=== PATIENT | male | born 1935 | race Caucasian/White ===

== ENCOUNTER 2022-01-06 19:19 | Emergency (ER) | payer MEDICARE, OTHER ==
--- NOTE | 2022-01-06 20:15 | NUR ---
patient to triage no answer
--- NOTE | 2022-01-06 20:47 | NUR ---
pt not in waiting room
[2022-01-07] MEDS ORDERED: ERGO500093 PO (14:21)
[2022-01-07] MEDS ORDERED: OLME5TAB6 PO (14:21)
[2022-01-07] MEDS ORDERED: FINA5TAB11 PO (14:21)
[2022-01-07] MEDS ORDERED: ATOR10TA PO (14:22)
== END 2022-01-06 20:47 | disposition left against medical advice (07) ==
LOC: ER 19:23
DX: Z53.21 Procedure and treatment not carried out due to patient leaving prior to being seen by health care provider (principal)

== ENCOUNTER 2022-01-07 13:19 | Inpatient (IN) | payer MEDICARE, OTHER ==
[~2022-01-07] VITALS: Ht 172.7 cm; Wt 58.1 kg
--- NOTE | 2022-01-07 13:23 | NUR ---
TO ER BED 4, [id number] FRM HOME, HEADACHE & DIZZINESS SINCE MORNING. WAS HERE YESTERDAY FELL, LAC AT BACK OF HEAD, LEFT W/O BEING SEEN, AAOX3, BREATHING EVEN AND NON LABORED, CONNECTED TO MONITOR
[2022-01-07 13:59] LABS: BASOPHILS % (AUTO) 0.3 % (0.0-2.0); EOSINOPHILS % (AUTO) 0.6 % (0.0-6.0); HEMATOCRIT 39 % (39-51); HEMOGLOBIN 12.6 g/dL (13.5-17.5); LYMPHOCYTES # (AUTO) 1.1 K/uL (0.8-4.8); LYMPHOCYTES % (AUTO) 16.9 % (20.0-44.0); MEAN CORPUSCULAR HGB CONC 33 g/dl (31.0-36.0); MEAN CORPUSCULAR VOLUME 90 fL (80-96); MONOCYTES # (AUTO) 0.6 K/uL (0.1-1.30); MONOCYTES % (AUTO) 8.4 % (2.0-12.0); NEUTROPHILS # (AUTO) 4.8 K/uL (1.8-8.9); NEUTROPHILS % (AUTO) 73.8 % (43.0-81.0); PLATELET COUNT (AUTO) 239 K/uL (150-450); RED BLOOD CELL COUNT(AUTO) 4.29 MIL/uL (4.5-6.0); WHITE BLOOD COUNT (AUTO) 6.5 K/uL (4.3-11.0)
[2022-01-07 14:06] LABS: CALCIUM, SERUM 9.3 mg/dL (8.5-10.1); CARBON DIOXIDE 32 mmol/L (21-32); CHLORIDE 101 mmol/L (98-107); CREATININE 1.2 mg/dL (0.6-1.3); GLUCOSE 99 mg/dL (74-106); POTASSIUM 4.3 mmol/L (3.5-5.1); SODIUM SERUM 134 mmol/L (136-145); UREA NITROGEN, BLOOD 24 mg/dL (7-18)
[2022-01-07 14:12] LABS: ALANINE AMINOTRANSFERASE 18 U/L (12-78); ALBUMIN 3.6 g/dL (3.4-5.0); ALKALINE PHOSPHATASE 102 U/L (46-116); ASPARTATE AMINOTRANSFERASE 24 U/L (15-37); BILIRUBIN,DIRECT 0.2 mg/dL (0.0-0.2); BILIRUBIN,TOTAL 0.7 mg/dL (0.2-1.0); TOTAL PROTEIN, SERUM 7.6 g/dL (6.4-8.2)
[2022-01-07] MEDS ORDERED: FINA5TAB11 PO (14:21)
[2022-01-07] MEDS ORDERED: ERGO500093 PO (14:21)
[2022-01-07] MEDS ORDERED: OLME5TAB6 PO (14:21)
[2022-01-07] MEDS ORDERED: ATOR10TA PO (14:22)
--- NOTE | 2022-01-07 14:22 | NUR ---
COVID SWAB DONE AND SENT TO LAB
--- NOTE | 2022-01-07 14:26 | NUR ---
PT TAKEN TO RADIOLOGY
[2022-01-07] MEDS ORDERED: IOHEXOL-350 100 ML VIAL IV ONE (15:51)
[2022-01-07] MEDS ORDERED: IV NS 0.9% 250 ML IV ONE (15:51)
--- NOTE | 2022-01-07 17:04 | NUR ---
TABITHA ([facility]) [phone]
--- NOTE | 2022-01-07 17:05 | NUR ---
BP 191/97, DR HENDRICKSON AWARE
--- NOTE | 2022-01-07 17:29 | NUR ---
Elizabeth aaron in [facility] - 01/07/22 at 1731 by ROBSON REPORT GIVEN TO BALA DENNIS
--- NOTE | 2022-01-07 17:39 | NUR ---
BP 192/100, DR HENDRICKSON AWARE
[2022-01-07] MEDS ORDERED: hydrALAZINE HCL IV 20 MG VIAL ONE (18:09)
[2022-01-07] MEDS: hydrALAZINE HCL IV 20 MG VIAL IV PRN (18:12)
--- NOTE | 2022-01-07 20:02 | NUR ---
RECEIVED PT IN ER ROOM 4. PT IS RESTING COMFORTABLY IN BED. PT IS ALERT. RR EVEN AND NON LABORED. CONNECTED TO POX AND HEART MONITOR. VITAL SIGNS WITHIN LIMITS. FAMILY AT BEDSIDE. WILL CONTINUE TO MONITOR
[2022-01-07] MEDS ORDERED: Z GUARD REMEDY 4 OZ OINT TP PRN (23:00)
[2022-01-07] MEDS ORDERED: ERGOCALCIFEROL (VITAMIN D 2) 50,000 UNIT CAPSULE PO SCH (23:00)
[2022-01-07] MEDS ORDERED: ONDANSETRON HCL/PF 4 MG/2 ML VIAL IVP PRN (23:00)
--- NOTE | 2022-01-07 23:32 | NUR ---
DR HENDRICKSON AT BEDSIDE
[2022-01-08] VITALS (23 sets, daily range): BP systolic 119–195; BP diastolic 54–102
--- NOTE | 2022-01-08 00:10 | NUR ---
PT RESTING IN BED WITH EYES CLOSED. RR EVEN AND NON LABORED. CONNECTED TO POX AND HEART MONITOR. VSS. WILL CONTINUE TO MONITOR
[2022-01-08 00:40] LABS: THYROID STIMULATING HORMONE 2.695 uIU/mL (0.358-3.74)
[2022-01-08 06:12] LABS: BASOPHILS % (AUTO) 0.4 % (0.0-2.0); EOSINOPHILS % (AUTO) 0.2 % (0.0-6.0); HEMATOCRIT 39 % (39-51); LYMPHOCYTES # (AUTO) 1.1 K/uL (0.8-4.8); LYMPHOCYTES % (AUTO) 15.1 % (20.0-44.0); MEAN CORPUSCULAR HGB CONC 34 g/dl (31.0-36.0); MEAN CORPUSCULAR VOLUME 89 fL (80-96); MONOCYTES # (AUTO) 0.6 K/uL (0.1-1.30); MONOCYTES % (AUTO) 7.6 % (2.0-12.0); NEUTROPHILS # (AUTO) 5.6 K/uL (1.8-8.9); NEUTROPHILS % (AUTO) 76.7 % (43.0-81.0); PLATELET COUNT (AUTO) 234 K/uL (150-450); RED BLOOD CELL COUNT(AUTO) 4.33 MIL/uL (4.5-6.0); WHITE BLOOD COUNT (AUTO) 7.3 K/uL (4.3-11.0)
[2022-01-08 06:30] LABS: CALCIUM, SERUM 9.5 mg/dL (8.5-10.1); CREATININE 1.1 mg/dL (0.6-1.3); MAGNESIUM 2.5 mg/dL (1.8-2.4); PHOSPHORUS 3.7 mg/dL (2.5-4.9); POTASSIUM 3.7 mmol/L (3.5-5.1)
--- NOTE | 2022-01-08 08:43 | NUR ---
REPORT GIVEN TO SARBJIT FOR SONNY
--- NOTE | 2022-01-08 09:06 | NUR ---
PT TRANSFERRED TO [facility] ACLS PROTOCOL. WARM HANDOFF GIVEN TO SARBJIT BLUEPRINT ASSEMBLER.
--- NOTE | 2022-01-08 09:20 | NUR ---
ICU/RN PT ADMITTED FROM ER.FROM HOME.POST FALL HAS ICH.PT IS AWAKE,ALERT-4.AFEBRILE.SINUS RHYTHM ON MONITOR.LEFT UPPER ARM -HL.DIAPER ON. SKIN INTACT.WAITING FOR SECOND CT HEAD RESULT .FAMILY AT BED SIDE.
[2022-01-08] MEDS: VALSARTAN 80 MG TABLET PO SCH (09:32)
[2022-01-08] MEDS: ACETAMINOPHEN 325 MG TABLET PO PRN (09:34)
--- NOTE | 2022-01-08 10:00 | NUR ---
ICU/RN PT C/O OF HEADACHE.BP 190/106.TYLENOL PO GIVEN AND DIOVAN PO GIVEN ORDERED.CONTINUE MONITORING.
--- NOTE | 2022-01-08 11:04 | NUR ---
ICU/RN RIGHT UPPER ARM MID LINE INSERTED
--- NOTE | 2022-01-08 11:40 | NUR ---
ICU/RN CT OF THE HEAD RESULT SEND TO W[facility] HENDRICKSON.
[2022-01-08] MEDS ORDERED: LACTULOSE 10 G/15 ML UDC (PYXIS) PO PRN (16:00)
[2022-01-08] MEDS: FINASTERIDE (5 MG) 5 MG TABLET PO SCH (17:13)
--- NOTE | 2022-01-08 18:33 | NUR ---
ICU/RN PT IS RESTING.ON ROOM AIR,SAT O2-98%.V/S STABLE,AFEBRILE NO PAIN REPORTED AT THIS TIME.ALL MEDS ARE GIVEN ORDERED.AWAKE,ALERT-4. FAMILY AT BEDSIDE.CONTINUE MONITORING.
--- NOTE | 2022-01-08 19:35 | NUR ---
CONFORMAL PAD FORMER OPENING NOTES: RECEIVED PT IN BED, AWAKE, ALERT/ORIENTED X4 AND VERBALLY RESPONSIVE. ON ROOM AIR AND PT TOLERATED WELL. O2 SAT 96%. IV ACCESS ON LAC#20G AND ADILSON MIDLINE INTACT AND PATENT. NO S/S OF INFILTRATIONS. NO C/O PAIN OR DISCOMFORT. NO ACUTE DISTRESS. INCONTINENT IN BOWEL AND BLADDER AT THIS MOMENT. ABLE TO MAKE HIS NEEDS. ALL SAFETY MEASURES IN PLACE. SIDE RAILS UP X2, BED IN LOWEST POSITION AND LOCKED. PLACE CALL LIGHT WITH IN REACH. WILL CONTINUE TO MONITOR
[2022-01-08] MEDS ORDERED: NIMODIPINE (30MG) 30 MG CAPSULE PO SCH (21:00)
[2022-01-08] MEDS: ATORVASTATIN 10 MG TABLET PO SCH (22:27)
[2022-01-09] VITALS (25 sets, daily range): BP systolic 113–161; BP diastolic 54–91
[2022-01-09] MEDS: hydrALAZINE HCL IV 20 MG VIAL IV PRN (04:36)
--- NOTE | 2022-01-09 04:42 | NUR ---
RN NOTES: PT'S BP INCREASED TO 161/87, PULSE- 84. HYDRALAZINE 0.5 ML GIVEN PER PRN ORDERED. WILL CONTINUE TO MONITOR
--- NOTE | 2022-01-09 06:25 | NUR ---
SILL WORKER CLOSING NOTES: PT IN BED, AWAKE, ALERT/ORIENTED X4 AND VERBALLY RESPONSIVE. ON ROOM AIR AND PT TOLERATED WELL. O2 SAT 97%. IV ACCESS ON LAC#20G AND ADILSON MIDLINE INTACT AND PATENT. NO S/S OF INFILTRATIONS. NO C/O PAIN OR DISCOMFORT. NO ACUTE DISTRESS. INCONTINENT IN BOWEL AND BLADDER AT THIS MOMENT. ABLE TO MAKE HIS NEEDS. ALL DUE MEDS GIVEN ORDERED. ALL SAFETY MEASURES IN PLACE. SIDE RAILS UP X2, BED IN LOWEST POSITION AND LOCKED. PLACE CALL LIGHT WITH IN REACH. WILL ENDORSE TO MORNING SHIFT NURSE.
--- NOTE | 2022-01-09 07:30 | NUR ---
OPENING NOTE: REPORT RECEIVED FROM MYRON CUMMINGS. ORDERS AND LABS REVIEWED DURING REPORT. PER REPORT PT IS ALERT OX4, FOLLOWS COMMANDS. PT IS ON BEDREST FOR SAH AND RISK FOR FALL. PER REPORT PT IS NOT A SURGICAL CANDIDATE. PT CHECKED ON HOURLY AND PRN BY NURSING STAFF.
[2022-01-09] MEDS: VALSARTAN 80 MG TABLET PO SCH (09:00)
[2022-01-09] MEDS: FINASTERIDE (5 MG) 5 MG TABLET PO SCH (18:29)
--- NOTE | 2022-01-09 18:44 | NUR ---
END OF SHIFT NOTE: PT HAD A FAIRLY UNEVENTFUL SHIFT. PT CONTINUES TO BE ALERT OX4 ALL DAY. POOR APPETITE. PATIENT C/O TOLERABLE PAIN IN NECK, DENIES NEED FOR PAIN MEDICATION TODAY. PT CHECKED ON HOURLY AND PRN BY NURSING STAFF.
[2022-01-09] MEDS: ATORVASTATIN 10 MG TABLET PO SCH (22:09)
[2022-01-10] VITALS (20 sets, daily range): BP systolic 89–156; BP diastolic 46–82
[2022-01-10 04:12] LABS: BASOPHILS % (AUTO) 0.2 % (0.0-2.0); EOSINOPHILS % (AUTO) 0.7 % (0.0-6.0); HEMATOCRIT 36 % (39-51); HEMOGLOBIN 12.2 g/dL (13.5-17.5); LYMPHOCYTES # (AUTO) 0.7 K/uL (0.8-4.8); LYMPHOCYTES % (AUTO) 10.4 % (20.0-44.0); MEAN CORPUSCULAR HGB CONC 34 g/dl (31.0-36.0); MEAN CORPUSCULAR VOLUME 88 fL (80-96); MONOCYTES # (AUTO) 0.6 K/uL (0.1-1.30); MONOCYTES % (AUTO) 8.9 % (2.0-12.0); NEUTROPHILS # (AUTO) 5.1 K/uL (1.8-8.9); NEUTROPHILS % (AUTO) 79.8 % (43.0-81.0); PLATELET COUNT (AUTO) 225 K/uL (150-450); RED BLOOD CELL COUNT(AUTO) 4.13 MIL/uL (4.5-6.0); WHITE BLOOD COUNT (AUTO) 6.4 K/uL (4.3-11.0)
[2022-01-10 04:52] LABS: ALBUMIN 2.9 g/dL (3.4-5.0); BILIRUBIN,TOTAL 0.8 mg/dL (0.2-1.0); CALCIUM, SERUM 8.8 mg/dL (8.5-10.1); CREATININE 1.1 mg/dL (0.6-1.3); POTASSIUM 4.2 mmol/L (3.5-5.1); TOTAL PROTEIN, SERUM 6.7 g/dL (6.4-8.2)
--- NOTE | 2022-01-10 07:05 | NUR ---
SHOVEL LOADER OPERATOR Bedside report taken from [facility] nurse Venkat CUMMINGS. pt asleep, easily arousable. AAO x3 , PERRLA, follows commands moves bue and ble 4/5 . pt on room air, tolerating well spo2 98%. pt NSR on the monitor, bue and ble pulses present and palpable. pt on soft diet, bowel sounds present, abdomen soft to touch. pt has condom cath, intact and draining chinedu color urine. all lines traced. vitals stable. safety measures in place. will continue to monitor.
--- NOTE | 2022-01-10 07:50 | NUR ---
CHIEF PROJECTIONIST SCD machine requested from central supply, awaiting delivery to ICU
[2022-01-10] MEDS: VALSARTAN 80 MG TABLET PO SCH ×2 (08:00→08:11)
[2022-01-10] MEDS: hydrALAZINE HCL IV 20 MG VIAL IV PRN (08:50)
--- NOTE | 2022-01-10 08:54 | NUR ---
MACHINE PAN GREASER Pt sitting up in bed feeding self breakfast tray. pt refused breakfast at this time but did drink some tea. prn hydraulizine given for bp. other vitals stable. safety measures in place. will continue to monitor.
[2022-01-10] MEDS: ACETAMINOPHEN 325 MG TABLET PO PRN (09:31)
--- NOTE | 2022-01-10 09:33 | NUR ---
COMMUNICATIONS ATTENDANT PRN tylenol given for neck pain per pt request.
--- NOTE | 2022-01-10 10:15 | NUR ---
MOBILE GAME ENGINEER SCD placed on pt ble
--- NOTE | 2022-01-10 14:18 | NUR ---
C PROGRAMMER PT at bedside working with pt. pt awake, alert and cooperative, vitals stable. pt tolerating well. no signs of acute distress at this time. will continue to monitor.
--- NOTE | 2022-01-10 16:20 | NUR ---
GROCERY SACKER Pt linen change done. skin check done, no new wounds noted. pt tolerated well. vitals stable. will continue to monitor.
--- NOTE | 2022-01-10 17:44 | NUR ---
FOOD COUNTER ATTENDANT telephone report given to [facility] nurse Abhi RN, pt transfered to [facility] room 101 via bed with alarm security or surveillance monitor. all lines traced. vitals stable. pt awake, alert and talking, pt tolerated well. safety measures in place. pt reoriented to new room. Abhi RN at bedside. pt belongings cell phone , trainmaster and eye glasses endorsed to [facility] RN, clothing at bedside also.
[2022-01-10] MEDS: FINASTERIDE (5 MG) 5 MG TABLET PO SCH (18:36)
--- NOTE | 2022-01-10 18:50 | NUR ---
RN NOTE RECEIVED PT FROM ICU. GOT REPORT FROM EMILIANO PHELPS. PT NOT IN DISTRESS. IN ROOM AIR. V/S STABLE. ON TELE MONITOR SHOWING SR. WITH IV ACCES ON ADILSON MIDLINE IN PLACE AND PATENT. V/S STABLE. NO CHANGES IN LOC. WILL CONTINUE TO MONITOR.
--- NOTE | 2022-01-10 19:40 | NUR ---
RN OPENING NOTES: RECEIVED PT IN BED, AWAKE, ALERT/ORIENTED X3-4 AND VERBALLY RESPONSIVE. ON ROOM AIR AND PT TOLERATED WELL. IV ACCESS ON ADILSON MIDLINE INTACT AND PATENT. NO S/S OF INFILTRATIONS. NO C/O PAIN OR DISCOMFORT. NO ACUTE DISTRESS. CONDOM CATHETER IN PLACE. DRAINING WELL. ABLE TO MAKE HIS NEEDS. ALL SAFETY MEASURES IN PLACE. SIDE RAILS UP X2, BED IN LOWEST POSITION AND LOCKED. PLACE CALL LIGHT WITH IN REACH. WILL CONTINUE TO MONITOR
--- NOTE | 2022-01-10 20:45 | NUR ---
RN NOTES: TALKED TO DAUGHTER. UPDATE GIVEN.
[2022-01-10] MEDS: ATORVASTATIN 10 MG TABLET PO SCH (21:44)
[2022-01-11] VITALS: BP 123/58
[2022-01-11 04:00] VITALS: BP 139/78
--- NOTE | 2022-01-11 06:53 | NUR ---
RN CLOSING NOTES: PT IN BED, AWAKE, ALERT/ORIENTED X3-4 AND VERBALLY RESPONSIVE. ON ROOM AIR AND PT TOLERATED WELL. O2 SAT 97%. IV ACCESS ON ADILSON MIDLINE INTACT AND PATENT. NO S/S OF INFILTRATIONS. NO C/O PAIN OR DISCOMFORT. NO ACUTE DISTRESS. CONDOM CATHETER IN PLACE. DRAINING WELL. ABLE TO MAKE HIS NEEDS. ALL DUE MEDS GIVEN ORDERED. ALL SAFETY MEASURES IN PLACE. SIDE RAILS UP X2, BED IN LOWEST POSITION AND LOCKED. PLACE CALL LIGHT WITH IN REACH. WILL ENDORSE TO MORNING SHIFT NURSE.
--- NOTE | 2022-01-11 07:47 | NUR ---
[facility] RN NOTES: PT IN BED, AWAKE, ALERT/ORIENTED X3-4 AND VERBALLY RESPONSIVE. ON ROOM AIR AND PT TOLERATED WELL. NO SOB AT THIS TIME IV ACCESS ON ADILSON MIDLINE INTACT AND PATENT. NO S/S OF INFILTRATIONS. NO C/O PAIN OR DISCOMFORT. NO ACUTE DISTRESS. CONDOM CATHETER IN PLACE. DRAINING WELL. ABLE TO MAKE HIS NEEDS. ALL SAFETY MEASURES IN PLACE. SIDE RAILS UP X2, BED IN LOWEST POSITION AND LOCKED. PLACE CALL LIGHT WITH IN REACH. ON TELE MONITOR SR HR 80 WITH CONDOM CATH TO GRAVITY WITH YELLOW COLOR URINE LY UPPER ARM MID LINE IN PLACE AND FLUSHED WELL
[2022-01-11 08:00] VITALS: BP 160/86
[2022-01-11] MEDS: VALSARTAN 80 MG TABLET PO SCH (08:22)
--- NOTE | 2022-01-11 09:37 | NUR ---
evelio rn note seen by pt able to sit at edge of bed
--- NOTE | 2022-01-11 10:16 | NUR ---
[facility] RN NOTE PER DR BAUTISTA OK TO DO NEURO CHECK Q4 HOUR ORDER CARRIED OUT
[2022-01-11 12:14] VITALS: BP 150/82
--- NOTE | 2022-01-11 13:00 | NUR ---
telemetry registered nurse note family at bedside ,all needs attended
--- NOTE | 2022-01-11 14:00 | NUR ---
CORRECTIONAL TREATMENT SPECIALIST NOTE DAUGHTER AT BEDSIDE NOTIFIED THAT PAT[facility]
[2022-01-11 16:00] VITALS: BP 160/78
--- NOTE | 2022-01-11 16:43 | NUR ---
tele rrn note called to [facility] spoke with neal rn report given
[2022-01-11] MEDS: FINASTERIDE (5 MG) 5 MG TABLET PO SCH (17:09)
--- NOTE | 2022-01-11 17:41 | NUR ---
ROLL UP MACHINE OPERATOR NOTE OFFERED X2 TO EAT BUT STILL REFUSED TO EAT, WILL F\U
--- NOTE | 2022-01-11 18:48 | NUR ---
CONTRACT NEGOTIATION SPECIALIST NOTE PATIENT IN BED ALERT ORIENTEDX3, RESTING COMFORTABLY ON RA, NO SOB NOTED AT THIS TIME WITH CONDOM CATH TO GRAVITY ,ADILSON MID LINE IN PLACE AND FLUSHED WEILL ,CALL LIGHT WITHIN REACH, TURN REPOSITION , ALL NEEDS ATTENDED ,SAFETY MEASURE IMPLEMENTED ,WILL CONT TO MONITOR CLOSELY
[2022-01-11 20:00] VITALS: BP 155/89
--- NOTE | 2022-01-11 20:00 | NUR ---
teletype mechanic notes Received pts from joão Day shift Rn ,pts for discharged to [facility] room 303 .resident is stable a/ox3 able to make needs known . pts in r/a sating 97%. Awaiting transport to come , per shelli report given to Jeremiah CUMMINGS.
--- NOTE | 2022-01-11 20:15 | NUR ---
television analyzer notes Resident was picked up by [facility] via stretcher , report given to the ambulance crew including paper works , patient left the hospital in stable condition , no c/o pain . with left upper arm midline intact and patent .pts going to [facility].
== END 2022-01-11 21:10 | DRG 86 ==
LOC: ER 13:21 → TRANSITION 17:49 → ICU 01-08 07:52 → TELE-TD 01-10 17:17 → TELE1 01-11 10:24
PROVIDERS: ADMIT Nurse Practitioner Acute Care; ATTEND Internal Medicine
PROC: 05HA33Z Insertion of Infusion Device into Left Brachial Vein, Percutaneous Approach (ICD-10-PCS; principal; 2022-01-08)
DX: S06.6X0A Traumatic subarachnoid hemorrhage without loss of consciousness, initial encounter (principal); E87.1 Hypo-osmolality and hyponatremia; S02.119A Unspecified fracture of occiput, initial encounter for closed fracture; Z20.822 Contact with and (suspected) exposure to COVID-19; E78.5 Hyperlipidemia, unspecified; E83.41 Hypermagnesemia; Y92.009 Unspecified place in unspecified non-institutional (private) residence as the place of occurrence of the external cause; W01.198A Fall on same level from slipping, tripping and stumbling with subsequent striking against other object, initial encounter; Z79.899 Other long term (current) drug therapy; G93.89 Other specified disorders of brain; N40.0 Benign prostatic hyperplasia without lower urinary tract symptoms; F07.81 Postconcussional syndrome; I10 Essential (primary) hypertension
CPT/HCPCS: 36410; 36415; 70450-TC; 70490-TC; 70496-TC; 70498-TC; 71045-TC; 72125-TC; 80048-TC; 80053-TC; 80061-TC; 80076-TC; 83735-TC; 84100-TC; 84443-TC; 84484-TC; 85025-TC; 87040-TC; 87081-TC; 97112-TC; 97116-TC; 97530-TC; A4349; C9803; G0378; J0360; J2405; J7050; Q9967

== ENCOUNTER 2022-06-18 21:05 | Inpatient (IN) | payer MEDICARE, OTHER ==
[~2022-06-18] VITALS: Ht 175.3 cm; Wt 65.3 kg
[~2022-06-18 21:05] MED LIST: ATOR10TA PO; ERGO500093 PO; FINA5TAB11 PO; OLME5TAB6 PO
--- NOTE | 2022-06-18 21:27 | NUR ---
IGLESIA FOR C/O GEN WEAKNESS. A, OX3, FARSI SPEAKING. VSS. PLACED IN BED 3 ER. WILL CONT TO MONITOR
[2022-06-18 22:00] LABS: BASOPHILS % (AUTO) 0.2 % (0.0-2.0); EOSINOPHILS % (AUTO) 0.3 % (0.0-6.0); HEMATOCRIT 32 % (39-51); HEMOGLOBIN 10.3 g/dL (13.5-17.5); LYMPHOCYTES # (AUTO) 0.2 K/uL (0.8-4.8); LYMPHOCYTES % (AUTO) 3.8 % (20.0-44.0); MEAN CORPUSCULAR HGB CONC 33 g/dl (31.0-36.0); MEAN CORPUSCULAR VOLUME 87 fL (80-96); MONOCYTES % (AUTO) 0.3 % (2.0-12.0); NEUTROPHILS # (AUTO) 4.7 K/uL (1.8-8.9); NEUTROPHILS % (AUTO) 95.4 % (43.0-81.0); PLATELET COUNT (AUTO) 170 K/uL (150-450); RED BLOOD CELL COUNT(AUTO) 3.64 MIL/uL (4.5-6.0); WHITE BLOOD COUNT (AUTO) 4.9 K/uL (4.3-11.0)
[2022-06-18 22:59] LABS: ALANINE AMINOTRANSFERASE 76 U/L (12-78); ALBUMIN 3.3 g/dL (3.4-5.0); ALKALINE PHOSPHATASE 129 U/L (46-116); ASPARTATE AMINOTRANSFERASE 119 U/L (15-37); BILIRUBIN,DIRECT 0.3 mg/dL (0.0-0.2); BILIRUBIN,TOTAL 0.7 mg/dL (0.2-1.0); CARBON DIOXIDE 25 mmol/L (21-32); CHLORIDE 104 mmol/L (98-107); CREATININE 1.5 mg/dL (0.6-1.3); GLUCOSE 66 mg/dL (74-106); POTASSIUM 4.2 mmol/L (3.5-5.1); SODIUM SERUM 139 mmol/L (136-145); TOTAL PROTEIN, SERUM 7.2 g/dL (6.4-8.2); UREA NITROGEN, BLOOD 35 mg/dL (7-18)
--- NOTE | 2022-06-18 22:59 | NUR ---
PT GOING TO CT
--- NOTE | 2022-06-18 23:10 | NUR ---
PT BACK FROM CT
[2022-06-18] MEDS ORDERED: IV NS 0.9% 1,000 ML IV ONE (23:30)
--- NOTE | 2022-06-19 01:32 | NUR ---
DAUGHTER IRA [phone]
--- NOTE | 2022-06-19 01:42 | NUR ---
MULTIPLE ATTEMPTS TO GET A HOLD OF THE DAUGHTER, TABITHA BUT UNSUCCESSFUL
--- NOTE | 2022-06-19 03:20 | NUR ---
PT WAS TRANSFERRED TO THIRD FLOOR UNDER ACLS
--- NOTE | 2022-06-19 03:30 | NUR ---
LIEUTENANT COLONELPOURED PIPE MAKER NOTES REPORT RECEIVED FROM TY. PATIENT TRANSFERRED FROM ER VIA GURNEY, WITH NO SIGNS OF DISTRESS. ORIENTED PATIENT TO ROOM SET UP AND EDUCATED PT ON THE USE OF CALL LIGHT. VS TAKEN, STABLE AND RECORDED. SKIN ASSESSMENT DONE AND PICTURES TAKEN. ALL BELONGIN LIST SIGNED. WILL CONTINUE TO MONITOR THE PATIENT AND CARRY OUT ACTRIVE MD ORDERS.
--- NOTE | 2022-06-19 04:30 | NUR ---
RN NOTES PATIENT UNABLE TO DO ORTHOSTATIC BP DUE TO WEAKNESS. WILL CONTINUE TO MONITOR THE PATIENT.
[2022-06-19] MEDS ORDERED: ONDANSETRON HCL/PF 4 MG/2 ML VIAL IVP PRN (05:00)
[2022-06-19] MEDS: IV D5/ 0.9% NACL 1,000 ML IV PRN ×2 (05:32→20:54)
--- NOTE | 2022-06-19 07:00 | NUR ---
TAIL PULLER OPENING NOTES PATIENT RECEIVED IN BED ASLEEP. ON ROOM AIR, BREATHING EVEN AND UNLABORED WITH S/S OF RESPIRATORY DISTRESS OR SOB. ON CORRESPONDENCE COORDINATOR. IV ACCESS AT RAC 20G, INTACT AND PATENT RUNNING NS 100 ML/HR. SAFETY MEASURES IN PLACE WITH BED IN LOWEST LOCKED POSITION, HOB ELEVATED, SIDE RAILS UP X3, CALL LIGHT AND BEDSIDE TABLE WITHIN REACH. WILL CONTINUE TO MONITOR.
[2022-06-19 07:23] LABS: HEMATOCRIT 28 % (39-51); LYMPHOCYTES # (AUTO) 0.4 K/uL (0.8-4.8); LYMPHOCYTES % (AUTO) 1.5 % (20.0-44.0); MEAN CORPUSCULAR HGB CONC 33 g/dl (31.0-36.0); MEAN CORPUSCULAR VOLUME 88 fL (80-96); MONOCYTES # (AUTO) 1.2 K/uL (0.1-1.30); MONOCYTES % (AUTO) 4.8 % (2.0-12.0); NEUTROPHILS # (AUTO) 23.2 K/uL (1.8-8.9); NEUTROPHILS % (AUTO) 93.7 % (43.0-81.0); PLATELET COUNT (AUTO) 142 K/uL (150-450); RED BLOOD CELL COUNT(AUTO) 3.15 MIL/uL (4.5-6.0); WHITE BLOOD COUNT (AUTO) 24.8 K/uL (4.3-11.0)
[2022-06-19 07:47] LABS: CALCIUM, SERUM 8.2 mg/dL (8.5-10.1); CARBON DIOXIDE 24 mmol/L (21-32); CHLORIDE 106 mmol/L (98-107); CREATININE 1.6 mg/dL (0.6-1.3); GLUCOSE 112 mg/dL (74-106); MAGNESIUM 1.7 mg/dL (1.8-2.4); PHOSPHORUS 1.4 mg/dL (2.5-4.9); POTASSIUM 3.4 mmol/L (3.5-5.1); SODIUM SERUM 138 mmol/L (136-145); UREA NITROGEN, BLOOD 35 mg/dL (7-18)
[2022-06-19 07:55] VITALS: BP 106/61
--- NOTE | 2022-06-19 08:30 | NUR ---
CRITICAL LAB PROCALCITONIN 53.43. [facility] NOTIFIED.
[2022-06-19] MEDS: ENOXAPARIN SODIUM 40 MG/0.4 ML DISP.SYRIN SQ SCH (09:13)
[2022-06-19] MEDS ORDERED: NEUTRA PHOS 1 POWD.PACKET PO ONE (10:00)
[2022-06-19] MEDS ORDERED: Magnesium 1GM/D5W 100ML PREMIX 100 ML IV SCH (10:00)
[2022-06-19] MEDS ORDERED: POTASSIUM CHLORIDE 10 MEQ TABLET.SA PO ONE (10:00)
--- NOTE | 2022-06-19 11:34 | NUR ---
ULTRASOUND SHOWS URINE RETENTION OF 400 CC. PATIENT STATES THAT HE IS UNABLE TO URINATE. DR LIPSCOMB NOTIFIED.
--- NOTE | 2022-06-19 11:34 | NUR ---
PATIENTS DAUGHTER STATES THAT HE HAS HAD DIARRHEA FOR OVER A YEAR. RELAYED INFO TO DR LIPSCOMB.
--- NOTE | 2022-06-19 12:35 | NUR ---
STRAIGHT CATH INSERTED. REMOVED 800CC.
[2022-06-19] MEDS: CEFTRIAXONE 1 G in IV D5W 50 ML IV SCH (13:38)
--- NOTE | 2022-06-19 13:50 | NUR ---
PATIENT ABLE TO VOID ON OWN
[2022-06-19 14:12] LABS: BILIRUBIN,URINE NEGATIVE (NEGATIVE); COLOR,URINE YELLOW (YELLOW); LEUKOCYTE ESTERASE ,URINE NEGATIVE (NEGATIVE); NITRITE, URINE NEGATIVE (NEGATIVE); PH,URINE 6.5 (5.0-8.0); PROTEIN,URINE TRACE mg/dl (NEGATIVE); UGLUCOSE NEGATIVE (NEGATIVE); UROBILINOGEN,URINE 0.2 EU/dL (0.2)
[2022-06-19 14:25] LABS: BACTERIA,URINE Many /HPF (None Seen); RBC,URINE NONE SEEN /HPF (0-2); SQUAMOUS EPITHELIAL CELL,UR Few /HPF (None Seen)
[2022-06-19] MEDS: AZITHROMYCIN 500 MG in IV D5W 250 ML IV SCH (14:41)
--- NOTE | 2022-06-19 15:00 | NUR ---
PATIENT COMPLAINED OF PAIN ON RAC. REMOVED AND REINSERTED LAC 22G.
[2022-06-19 15:10] VITALS: BP_SYST 106; BP_SYST 109; BP_SYST 96; BP_DIAS 46; BP_DIAS 56; BP_DIAS 57
[2022-06-19 15:27] LABS: BAND % (MANUAL) 6 % (0.0-5.0); MONOCYTES % (MANUAL) 1 % (0-11.0); NEUTROPHILS % (MANUAL) 93 (42-76)
--- NOTE | 2022-06-19 19:00 | NUR ---
LOT PORTER CLOSING NOTES PATIENT IN BED RESTING WITH FAMILY AT BEDSIDE. ON ROOM AIR, BREATHING EVEN AND UNLABORED WITH S/S OF RESPIRATORY DISTRESS OR SOB. ON BYPRODUCTS PUMP OPERATOR READING SR 67. IV ACCESS AT LAC 20G, INTACT AND PATENT RUNNING NS 100 ML/HR. ALL DUE MEDS GIVEN. PATIENT KEPT CLEAN AND COMFORTABLE. SAFETY MEASURES IN PLACE WITH BED IN LOWEST LOCKED POSITION, HOB ELEVATED, SIDE RAILS UP X3, CALL LIGHT AND BEDSIDE TABLE WITHIN REACH. WILL ENDORSE TO ONCOMING SHIFT FOR SONNY. Addendum: 06/19/22 at 1938 by LENCHO SAGE RN PATIENT IS ALERT AND ORIENTED X4. LIMITED KINYARWANDA.
--- NOTE | 2022-06-19 19:30 | NUR ---
WAREHOUSE SUPERVISOR 3RD SHIFT OPENING NOTES - RECEIVED PATIENT AWAKE IN BED. A/O X4, DIVEHI SPEAKING AND CAN SPEAK SOME ROMANIAN. BREATHING EVEN AND NON-LABORED ON ROOM AIR. NOT IN APPARENT DISTRESS. NO C/O PAIN OR DISCOMFORT AT THIS TIME. ON TELE MONITOR READING SINUS RHYTHM AT 68 BPM. HAS LEFT ANTECUBITAL IV ACCESS #22G, IVF OFF. NO S/S OF INFILTRATION NOTED. PATIENT IS INCONTINENT AND NEEDS MODERATE ASSISTANCE IN ADLS. SAFETY MEASURES IN PLACE: BED LOCKED AND IN LOW POSITION, SIDE RAILS UP X2, CALL LIGHT WITHIN REACH. WILL CONTINUE PLAN OF CARE.
[2022-06-19 20:00] VITALS: BP 82/44
[2022-06-19 20:30] VITALS: BP 92/48
--- NOTE | 2022-06-19 20:30 | NUR ---
BP 82/44, RECHECKED 92/48. RESTARTED IVF AND ELEVATED LEGS. WILL CONTINUE TO MONITOR.
[2022-06-19 22:00] VITALS: BP 95/46
[2022-06-20] VITALS: BP 94/46
--- NOTE | 2022-06-20 02:00 | NUR ---
BLADDER SCAN SHOWED >700 ML OF URINE RETENTION. STRAIGHT CATH DONE AND WAS ABLE TO DRAIN 600 ML OF CLEAR TEA-COLORED URINE. BLADDER DISTENTION NOTED.
[2022-06-20 04:00] VITALS: BP 118/54
[2022-06-20 05:52] LABS: BASOPHILS % (AUTO) 0.1 % (0.0-2.0); EOSINOPHILS % (AUTO) 0.2 % (0.0-6.0); HEMATOCRIT 27 % (39-51); HEMOGLOBIN 8.6 g/dL (13.5-17.5); LYMPHOCYTES # (AUTO) 1.1 K/uL (0.8-4.8); LYMPHOCYTES % (AUTO) 4.4 % (20.0-44.0); MEAN CORPUSCULAR HGB CONC 32 g/dl (31.0-36.0); MEAN CORPUSCULAR VOLUME 88 fL (80-96); NEUTROPHILS # (AUTO) 21.6 K/uL (1.8-8.9); NEUTROPHILS % (AUTO) 91.3 % (43.0-81.0); PLATELET COUNT (AUTO) 126 K/uL (150-450); RED BLOOD CELL COUNT(AUTO) 3.04 MIL/uL (4.5-6.0); WHITE BLOOD COUNT (AUTO) 23.7 K/uL (4.3-11.0)
[2022-06-20 06:09] LABS: CALCIUM, SERUM 7.8 mg/dL (8.5-10.1); CARBON DIOXIDE 22 mmol/L (21-32); CHLORIDE 103 mmol/L (98-107); CREATININE 1.6 mg/dL (0.6-1.3); GLUCOSE 97 mg/dL (74-106); PHOSPHORUS 2.7 mg/dL (2.5-4.9); SODIUM SERUM 133 mmol/L (136-145); UREA NITROGEN, BLOOD 37 mg/dL (7-18)
[2022-06-20 06:14] LABS: CHOLESTEROL 71 mg/dL (<200); HDL CHOLESTEROL 43 mg/dL (40-60); LDL 32 mg/dL (0-99); TRIGLYCERIDES 28 mg/dL (30-150)
--- NOTE | 2022-06-20 06:39 | NUR ---
RECEIVED CALL FROM LAB PROCALCITONIN 46.4. TRENDING DOWN.
--- NOTE | 2022-06-20 06:50 | NUR ---
MEDIA PRODUCTION OPERATOR CLOSING NOTES - PATIENT SLEEPING, EASY TO AROUSE. ABLE TO VERBALIZED NEEDS IN [place]. NO CARDIAC OR RESPIRATORY DISTRESS. SATURATING AT 98% ON ROOM AIR. DENIES PAIN AT THIS TIME. AFEBRILE. ON TELE MONITOR READING SINUS RHYTHM AT 64 BPM. HAS LEFT ANTECUBITAL IV ACCESS #22G WITH D5NS RUNNING AT 100 ML/HR. INTACT, PATENT AND FLUSHING. HAD BM X1. ALL DUE MEDS GIVEN AND NEEDS ATTENDED. SAFETY MEASURES MAINTAINED. WILL ENDORSE TO NEXT SHIFT FOR SONNY.
--- NOTE | 2022-06-20 07:37 | NUR ---
PATIENT SERVICES SPECIALIST OPENING NOTES PATIENT RECEIVED IN BED, SLEEPING. EASY TO AROUSE. ON ROOM AIR, BREATHING EVEN AND UNLABORED WITH NO S/S OF RESPIRATORY DISTRESS OR SOB. ON TELE MONITOR. IV ACCESS LAC 22G INTACT, PATENT AND FLUSHING WITH D5NS RUNNING AT 100 ML/HR. SAFETY MEASURES MAINTAINED WITH BED IN LOWEST LOCKED POSITION, HEAD OF BED ELEVATED, SIDE RAILS UP X3, CALL LIGHT AND BEDSIDE TABLE WITHIN REACH. WILL CONTINUE TO MONITOR.
[2022-06-20 08:00] VITALS: BP 117/64
[2022-06-20] MEDS: ENOXAPARIN SODIUM 40 MG/0.4 ML DISP.SYRIN SQ SCH (09:24)
--- NOTE | 2022-06-20 09:55 | NUR ---
BLADDER SCAN WITH 445 CC OF URINE
[2022-06-20] MEDS: IV D5/ 0.9% NACL 1,000 ML IV PRN ×2 (11:10→22:24)
--- NOTE | 2022-06-20 11:38 | NUR ---
STRAIGHT CATH REMOVED 500 CC
[2022-06-20 12:00] VITALS: BP 144/73
[2022-06-20] MEDS: CEFTRIAXONE 1 G in IV D5W 50 ML IV SCH (15:08)
[2022-06-20] MEDS: AZITHROMYCIN 500 MG in IV D5W 250 ML IV SCH (15:46)
[2022-06-20 16:00] VITALS: BP 135/65
--- NOTE | 2022-06-20 18:51 | NUR ---
PER MD LIPSCOMB PATEL CATHETER INSERTED.
--- NOTE | 2022-06-20 19:00 | NUR ---
DIRECTOR INDUSTRIAL MUSEUM CLOSING NOTES PATIENT IN BED WATCHING TV. ALERT AND ORIENTED X4. ON ROOM AIR, BREATHING EVEN AND UNLABORED WITH NO S/S OF RESPIRATORY DISTRESS OR SOB. ON TELE MONITOR. IV ACCESS LAC 22G INTACT, PATENT AND FLUSHING WITH D5NS RUNNING AT 100 ML/HR. PATEL CATHETER IN PLACE WITH DARK COLORED URINE DRAINING TO GRAVITY. ALL DUE MEDS GIVEN. SAFETY MEASURES MAINTAINED WITH BED IN LOWEST LOCKED POSITION, HEAD OF BED ELEVATED, SIDE RAILS UP X3, CALL LIGHT AND BEDSIDE TABLE WITHIN REACH. WILL ENDORSE TO ONCOMING SHIFT.
[2022-06-20 20:00] VITALS: BP 120/46
--- NOTE | 2022-06-20 20:31 | NUR ---
SCHOOL BUS MECHANIC OPENING NOTES: RECEIVED PATIENT AWAKE IN BED, BED IN LOW POSITION, CALL LIGHTS WITHIN REACH, NO COMPLAIN OF PAIN AND DISCOMFORT AT THIS TIME, ON ROOM AIR SATURATING WELL, PATIENT IS A/O X4 ABLE TO MAKE NEEDS KNOWN, ON TELE MONITOR- SR72, PATIENT ON PATEL CATHETER-100 CC URINE OUT, PATIENT KEPT CLEAN AND DRY ALL NEEDS MET WILL CONTINUE TO MONITOR.
[2022-06-20] MEDS: TAMSULOSIN 0.4 MG CAP.SR.24H PO SCH (22:03)
[2022-06-21] VITALS: BP 120/46
[2022-06-21 04:00] VITALS: BP 125/76
--- NOTE | 2022-06-21 05:00 | NUR ---
RN NOTES: RECEIVED A LAB RESULT OF BLOOD CULTURE WITH GRAM POSITIVE RESULT, ARMANI [place] MADE AWARE NO NEW ORDER PATIENT ON ABX ROCEPHIN AND ZITHROMAX BOTH Q24H, WILL CONTINUE TO MONITOR.
[2022-06-21 06:08] LABS: BASOPHILS % (AUTO) 0.1 % (0.0-2.0); EOSINOPHILS % (AUTO) 0.6 % (0.0-6.0); HEMATOCRIT 27 % (39-51); HEMOGLOBIN 8.8 g/dL (13.5-17.5); LYMPHOCYTES # (AUTO) 0.8 K/uL (0.8-4.8); LYMPHOCYTES % (AUTO) 4.2 % (20.0-44.0); MEAN CORPUSCULAR HGB CONC 32 g/dl (31.0-36.0); MEAN CORPUSCULAR VOLUME 87 fL (80-96); MONOCYTES # (AUTO) 0.5 K/uL (0.1-1.30); MONOCYTES % (AUTO) 2.9 % (2.0-12.0); NEUTROPHILS # (AUTO) 16.9 K/uL (1.8-8.9); NEUTROPHILS % (AUTO) 92.2 % (43.0-81.0); PLATELET COUNT (AUTO) 132 K/uL (150-450); RED BLOOD CELL COUNT(AUTO) 3.14 MIL/uL (4.5-6.0); WHITE BLOOD COUNT (AUTO) 18.4 K/uL (4.3-11.0)
--- NOTE | 2022-06-21 06:21 | NUR ---
LOG CHECK SCALER CLOSING NOTES: PATIENT SLEEP IN BED COMFORTABLY, AROUSABLE TO VERBAL STIMULI, BED IN LOW POSITION, CALL LIGHTS WITHIN REACH, NO COMPLAIN OF PAIN AND DISCOMFORT AT THIS TIME, ON ROOM AIR SATURATING WELL, PATIENT IS A/O X2-3 ABLE TO MAKE NEEDS KNOWN, ON TELE MONITOR- SR-72 IV LINE AT LAC#22 WITH ONGOING D5NS@100ML/HR INFUSING WELL, PATIENT KEPT CLEAN AND DRY ALL NEEDS MET ENDORSE TO INCOMING SHIFT.
[2022-06-21 06:33] LABS: CALCIUM, SERUM 7.7 mg/dL (8.5-10.1); CARBON DIOXIDE 23 mmol/L (21-32); CHLORIDE 107 mmol/L (98-107); CREATININE 1.3 mg/dL (0.6-1.3); GLUCOSE 95 mg/dL (74-106); PHOSPHORUS 2.9 mg/dL (2.5-4.9); POTASSIUM 3.6 mmol/L (3.5-5.1); SODIUM SERUM 136 mmol/L (136-145); UREA NITROGEN, BLOOD 28 mg/dL (7-18)
--- NOTE | 2022-06-21 07:40 | NUR ---
RN OPENING NOTE RECEIVED PT ASLEEP IN BED,EASILY AROUSABLE. PT ON ROOM AIR TOLERATING ABOVE 92%. A/0 X4. ON TELE MONITOR CURRENTLY SINUS RHYTM 63 AT THIS TIME. NO COMPLAINTS OF PAIN OR DISCOMFORT NOTED AT THIS TIME.PATIENT HAS LEFT AC 22 GUAGE. IV INTACT, PATENT AND FLUSHING WELL. ALL SAFETY MEASURES IN PLACE. CALL LIGHT WITHIN. BED LOCKED AT LOWEST POSITION.SIDE RAILS UP X2. BED ALARM ON
[2022-06-21 08:00] VITALS: BP 152/74
[2022-06-21] MEDS: ENOXAPARIN SODIUM 30 MG/0.3 ML DISP.SYRIN SQ SCH (08:03)
[2022-06-21 12:00] VITALS: BP 146/78
[2022-06-21] MEDS: CEFTRIAXONE 1 G in IV D5W 50 ML IV SCH (12:26)
[2022-06-21] MEDS ORDERED: MECLIZINE HCL 12.5 MG TABLET PO PRN (12:30)
[2022-06-21] MEDS ORDERED: METO-357 PO (12:39)
[2022-06-21] MEDS ORDERED: ALFU10TA10 PO (12:39)
[2022-06-21] MEDS ORDERED: ALBU18HF2 IH (12:39)
[2022-06-21] MEDS: AZITHROMYCIN 500 MG in IV D5W 250 ML IV SCH (13:34)
[2022-06-21 16:00] VITALS: BP 144/81
[2022-06-21] MEDS: FINASTERIDE (5 MG) 5 MG TABLET PO SCH (17:38)
[2022-06-21] MEDS: ATORVASTATIN 10 MG TABLET PO SCH (17:38)
[2022-06-21] MEDS: IV D5/ 0.9% NACL 1,000 ML IV PRN (18:45)
--- NOTE | 2022-06-21 19:06 | NUR ---
MILLINERY BLOCKER CLOSING NOTE PT ALERT AND ORIENTED X4. PT ON ROOM AIR TOLERATING ABOVE 92%. ON TELE MONITOR CURRENTLY SINUS RHYTM 71 AT THIS TIME. NO COMPLAINTS OF PAIN OR DISCOMFORT NOTED AT THIS TIME.PATIENT HAS LEFT AC 22 GUAGE. IV INTACT, PATENT AND FLUSHING WELL. PT HAS PATEL CATHETHER DUSTY/YELLOW COLOR DRAINING TO GRAVITY. ALL SAFETY MEASURES IN PLACE. CALL LIGHT WITHIN. BED LOCKED AT LOWEST POSITION.SIDE RAILS UP X2. BED ALARM ON.ENDORSED TO ASBESTOS PIPE SUPERVISOR RN FOR CONTUITY OF CARE
--- NOTE | 2022-06-21 19:15 | NUR ---
RN NOTE Report received from Cristina CUMMINGS, patient in bed, AO x 4, in no acute distress, breathing unlabored, saturation at 95% on room air, SR on the monitor, HR is 66. IV line at LAC 22g patent and flushing well, D5NS infusing at 100 ml/hr. Reddy catheter draining to a clear, yellow output. Safety measures in place, bed is locked and at lowest position, HOB elevated, call light within reach of patient. Will cont to monitor and reassess.
[2022-06-21 20:00] VITALS: BP 139/63
[2022-06-21] MEDS: TAMSULOSIN 0.4 MG CAP.SR.24H PO SCH (22:45)
[2022-06-22] VITALS: BP 146/71
[2022-06-22] MEDS: ACETAMINOPHEN 325 MG TABLET PO PRN (01:47)
[2022-06-22 04:00] VITALS: BP 119/58
[2022-06-22] MEDS: IV D5/ 0.9% NACL 1,000 ML IV PRN ×2 (04:59→23:33)
[2022-06-22 05:59] LABS: BASOPHILS % (AUTO) 0.2 % (0.0-2.0); EOSINOPHILS % (AUTO) 1.6 % (0.0-6.0); HEMATOCRIT 25 % (39-51); HEMOGLOBIN 8.4 g/dL (13.5-17.5); LYMPHOCYTES # (AUTO) 0.9 K/uL (0.8-4.8); LYMPHOCYTES % (AUTO) 8.1 % (20.0-44.0); MEAN CORPUSCULAR HGB CONC 33 g/dl (31.0-36.0); MEAN CORPUSCULAR VOLUME 86 fL (80-96); MONOCYTES # (AUTO) 0.5 K/uL (0.1-1.30); MONOCYTES % (AUTO) 4.7 % (2.0-12.0); NEUTROPHILS # (AUTO) 9.5 K/uL (1.8-8.9); NEUTROPHILS % (AUTO) 85.4 % (43.0-81.0); PLATELET COUNT (AUTO) 129 K/uL (150-450); RED BLOOD CELL COUNT(AUTO) 2.95 MIL/uL (4.5-6.0); WHITE BLOOD COUNT (AUTO) 11.2 K/uL (4.3-11.0)
[2022-06-22 06:21] LABS: CALCIUM, SERUM 8.1 mg/dL (8.5-10.1); CARBON DIOXIDE 22 mmol/L (21-32); CHLORIDE 107 mmol/L (98-107); CREATININE 1.4 mg/dL (0.6-1.3); GLUCOSE 97 mg/dL (74-106); PHOSPHORUS 3.2 mg/dL (2.5-4.9); POTASSIUM 3.6 mmol/L (3.5-5.1); SODIUM SERUM 139 mmol/L (136-145); UREA NITROGEN, BLOOD 25 mg/dL (7-18)
--- NOTE | 2022-06-22 07:03 | NUR ---
OPENING NOTE RECEIVED PATIENT IN BED COMFORTABLY BUT AROUSABLE, NO SIGNS OF IN DISTRESS, UNLABORED BREATHING ON ROOM AIR, SAFETY MEASURES IN PLACED, BED IN LOW POSITION LOCKED, SIDE RAILS UPX3, CALL LIGHT WITHIN REACH.
[2022-06-22 08:00] VITALS: BP 147/72
[2022-06-22] MEDS: LOSARTAN POTASSIUM 25 MG TABLET PO SCH (08:28)
[2022-06-22] MEDS: ENOXAPARIN SODIUM 30 MG/0.3 ML DISP.SYRIN SQ SCH (08:29)
[2022-06-22] MEDS: CEFTRIAXONE 1 G in IV D5W 50 ML IV SCH (10:59)
[2022-06-22 12:00] VITALS: BP 161/86
[2022-06-22] MEDS: AZITHROMYCIN 500 MG in IV D5W 250 ML IV SCH (12:51)
[2022-06-22 16:00] VITALS: BP 155/69
[2022-06-22] MEDS: FINASTERIDE (5 MG) 5 MG TABLET PO SCH (17:07)
[2022-06-22] MEDS: ATORVASTATIN 10 MG TABLET PO SCH (17:08)
--- NOTE | 2022-06-22 19:05 | NUR ---
CLOSING NOTE PATIENT IS IN BED RESTING COMFORTABLY, AWAKE, ALERT, ORIENTEDX3, NO SIGNS OF IN DISTRESS, NO COMPLAINT OF PAIN, UNLABORED BREATHING, SAFETY MEASURES ARE IN PLACE, BED IN LOW POSITION LOCKED, SIDE RAILS UPX3, CALL LIGHT WITHIN REACH.
--- NOTE | 2022-06-22 19:15 | NUR ---
RN NOTE Report received from Cristina CUMMINGS, patient in bed, AO x 4, in no acute distress, breathing unlabored, saturation at 97% on room air, SR on the monitor, HR is 69. IV line at LAC 22g patent and flushing well, D5NS infusing at 100 ml/hr. Reddy catheter draining to a clear, yellow output. Safety measures in place, bed is locked and at lowest position, HOB elevated, call light within reach of patient. Will cont to monitor and reassess.
[2022-06-22 20:00] VITALS: BP 154/71
[2022-06-22] MEDS: TAMSULOSIN 0.4 MG CAP.SR.24H PO SCH (20:48)
[2022-06-23] VITALS: BP 137/67
[2022-06-23 04:03] VITALS: BP 140/70
[2022-06-23 06:09] LABS: BASOPHILS % (AUTO) 0.4 % (0.0-2.0); EOSINOPHILS % (AUTO) 2.9 % (0.0-6.0); HEMATOCRIT 26 % (39-51); HEMOGLOBIN 8.6 g/dL (13.5-17.5); LYMPHOCYTES % (AUTO) 15.4 % (20.0-44.0); MEAN CORPUSCULAR HGB CONC 33 g/dl (31.0-36.0); MEAN CORPUSCULAR VOLUME 86 fL (80-96); MONOCYTES # (AUTO) 0.6 K/uL (0.1-1.30); MONOCYTES % (AUTO) 9.9 % (2.0-12.0); NEUTROPHILS # (AUTO) 4.6 K/uL (1.8-8.9); NEUTROPHILS % (AUTO) 71.4 % (43.0-81.0); PLATELET COUNT (AUTO) 149 K/uL (150-450); RED BLOOD CELL COUNT(AUTO) 3.04 MIL/uL (4.5-6.0); WHITE BLOOD COUNT (AUTO) 6.4 K/uL (4.3-11.0)
[2022-06-23 06:38] LABS: CARBON DIOXIDE 22 mmol/L (21-32); CHLORIDE 105 mmol/L (98-107); CREATININE 1.4 mg/dL (0.6-1.3); GLUCOSE 106 mg/dL (74-106); MAGNESIUM 1.9 mg/dL (1.8-2.4); PHOSPHORUS 2.9 mg/dL (2.5-4.9); POTASSIUM 3.4 mmol/L (3.5-5.1); SODIUM SERUM 133 mmol/L (136-145); UREA NITROGEN, BLOOD 21 mg/dL (7-18)
--- NOTE | 2022-06-23 07:20 | NUR ---
PRACTICAL MINISTRIES PROFESSOR OPENING NOTES : RECEIVED PATIENT IN NO SIGNS OF RESPIRATORY DISTRESS, PATIENT ON ROOM AIR TOLERATING WELL SATURATING @ >95% SP02.LAC G#22 WITH D5 NS RUNNING AT 100 ML/HR TOLERATING WELL.SAFETY MEASURES IN PLACE, BED IN LOWEST POSITION, LOCKED, SIDE RAILS UP, CALL LIGHT WITHIN REACH.. IV ACCESS MAINTAINED INTACT, SECURED AND FLUSHING WELL. PATIENT TOLERATED WELL. WILL MONITOR.
[2022-06-23 08:00] VITALS: BP 152/73
[2022-06-23] MEDS: LOSARTAN POTASSIUM 25 MG TABLET PO SCH (08:42)
[2022-06-23] MEDS: ENOXAPARIN SODIUM 30 MG/0.3 ML DISP.SYRIN SQ SCH (08:44)
[2022-06-23] MEDS ORDERED: AZITHROMYCIN 250 MG TABLET PO SCH (09:00)
[2022-06-23] MEDS ORDERED: POTASSIUM CHLORIDE 20 MEQ POWDER PACKET PO ONE (11:00)
[2022-06-23] MEDS: IV D5/ 0.9% NACL 1,000 ML IV PRN (11:17)
[2022-06-23] MEDS: ACETAMINOPHEN 325 MG TABLET PO PRN (11:30)
[2022-06-23 12:00] VITALS: BP 164/80
[2022-06-23] MEDS: CEFTRIAXONE 1 G in IV D5W 50 ML IV SCH (12:19)
[2022-06-23] MEDS ORDERED: MECL-182 PO (14:34)
[2022-06-23] MEDS ORDERED: LEVO500T90 PO (14:34)
[2022-06-23] MEDS ORDERED: Tamsulosin PO (14:34)
[2022-06-23 16:00] VITALS: BP 146/66
--- NOTE | 2022-06-23 16:45 | NUR ---
EMILIANO NOTES: PT IN BED ALERT AND ORIENTED X 4 NOT IN ANY PAIN OR ANY DISTRESS,BREATHING ON ROOM AIR, O2 SAT 96% . BODY CHECKED SKIN INTACT.VITAL SIGNS WITHIN NORMAL, PT PICKED UP TO [facility] IN STABLE CONDITION, DAUGHTER AT BEDSIDE , PICKED UP ALL HIS BELONGING INCLUDING HEARING AID. CALLED [facility] AND GAVE REPORT TO JOHANNA CUMMINGS Addendum: 06/23/22 at 1701 by ALEXANDER WATTS RN IV LINE REMOVED, SKIN INTACT, NO BLEEDING NOTED
[2022-06-24] MEDS ORDERED: ERGOCALCIFEROL (VITAMIN D 2) 50,000 UNIT CAPSULE PO SCH (09:30)
== END 2022-06-23 17:57 | DRG 871 ==
LOC: ER 21:07 → TELE1 06-19 02:36 → MEDSG1 06-23 13:25
PROVIDERS: ADMIT Student in an Organized Health Care Education/Training Program; ATTEND Student in an Organized Health Care Education/Training Program
DX: A41.9 Sepsis, unspecified organism (principal); N17.0 Acute kidney failure with tubular necrosis; E44.1 Mild protein-calorie malnutrition; E87.1 Hypo-osmolality and hyponatremia; N39.0 Urinary tract infection, site not specified; E78.5 Hyperlipidemia, unspecified; I10 Essential (primary) hypertension; E86.0 Dehydration; H81.10 Benign paroxysmal vertigo, unspecified ear; D63.8 Anemia in other chronic diseases classified elsewhere; D50.9 Iron deficiency anemia, unspecified; D69.6 Thrombocytopenia, unspecified; E16.2 Hypoglycemia, unspecified; E83.39 Other disorders of phosphorus metabolism; E83.42 Hypomagnesemia; E87.6 Hypokalemia; Z20.822 Contact with and (suspected) exposure to COVID-19; B96.1 Klebsiella pneumoniae [K. pneumoniae] as the cause of diseases classified elsewhere; R74.01 Elevation of levels of liver transaminase levels
CPT/HCPCS: 36415; 70450-TC; 71045-TC; 76770-TC; 80048-TC; 80061-TC; 80076-TC; 81001; 82962-TC; 83735-TC; 84100-TC; 84484-TC; 85025-TC; 85730-TC; 87040-TC; 87081-TC; 87086-TC; 97112-TC; 97116-TC; 97530-TC; A4223; G0378; J0456; J0696; J1650; J3475; J3490; J7030; J7042; J7060